=== PATIENT | female | born 2000 | race Caucasian/White ===

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

== ENCOUNTER 2020-06-17 11:23 | Emergency (ER) | payer BC ==
--- NOTE | 2020-06-17 12:36 | EDM.PDOC ---
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 She reports some blood clots and maybe some tissue with vaginal bleeding. She states she had some cramping but it was off and on. She reports ongoing vaginal bleeding. LMP 04/19/2020. Positive test in past. First OB appointment scheduled for 06/23/2020. She denies fever, chills, nausea, vomiting, change in bowel/bladder or other concerns. 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: Musculoskeletal History: Reports: None Neurological History: Reports: None Psychiatric History: Reports: Depression Endocrine/Metabolic History: Reports: None Dermatologic History: Reports: None - Infectious Disease History Infectious Disease History: Reports: None - Past Surgical History HEENT Surgical History: Reports: Tonsillectomy Social & Family History - Tobacco Use Tobacco Use Status *Q: Never Tobacco User - Caffeine Use Caffeine Use: Reports: None - Recreational Drug Use Recreational Drug Use: No ED ROS GENERAL - Review of Systems Review Of Systems: See Below Constitutional: Reports: No Symptoms HEENT: Reports: No Symptoms Respiratory: Reports: No Symptoms Cardiovascular: Reports: No Symptoms Endocrine: Reports: No Symptoms GI/Abdominal: Reports: Other (pelvic cramping off and on) : Reports: Other (irregular vaginal bleeding, confirmed , 8 weeks . LMP 04/19/2020) Musculoskeletal: Reports: No Symptoms Skin: Reports: No Symptoms Neurological: Reports: No Symptoms Psychiatric: Reports: No Symptoms ED EXAM - Physical Exam Exam: See Below Exam Limited By: No Limitations General Appearance: Alert, WD/WN, No Apparent Distress Throat/Mouth: Normal Inspection, Normal Lips, Normal Teeth, Normal Gums, Normal Oropharynx, Normal Voice, No Airway Compromise Head: Atraumatic, Normocephalic Neck: Normal Inspection, Supple, Non-Tender, Full Range of Motion. No: Lymphadenopathy (R), Lymphadenopathy (L) Respiratory/Chest: No Respiratory Distress, Lungs Clear, Normal Breath Sounds, No Accessory Muscle Use, Chest Non-Tender. No: Crackles, Rales, Rhonchi, Wheezing Cardiovascular: Normal Peripheral Pulses, Regular Rate, Rhythm, No Edema, No Murmur, No Rub GI/Abdominal Exam: Normal Bowel Sounds, Soft, No Mass, Other (tender to supra pubic with palpation) (Female) Exam: Normal External Exam, Adnexal Tenderness, Uterine Tenderness, Vaginal Bleeding (small clots noted). No: Products of Conception, Tissue Present in Cervix/Vagina, Vaginal Lesions, Vaginal Tears Back Exam: Normal Inspection, Full Range of Motion. No: CVA Tenderness (R), CVA Tenderness (L) Extremities: Normal Inspection, Normal Range of Motion, Non-Tender, No Pedal Edema, Normal Capillary Refill Neurological: Alert, Oriented, Normal Cognition, Normal Gait, No Motor/Sensory Deficits Psychiatric: Normal Affect, Tearful Skin Exam: Warm, Dry, Intact, Normal Color, No Rash Lymphatic: No Adenopathy Course - Vital Signs Last Recorded V/S: Last Vital Signs Temp 37.2 C 06/17/20 11:57 Pulse 74 06/17/20 11:57 Resp 16 06/17/20 11:57 BP 127/75 06/17/20 11:57 Pulse Ox 100 06/17/20 11:57 - Orders/Labs/Meds Orders: Active Orders 24 hr Category Date Time Status RH IMMUNE GLOBULIN [BBK] Routine Lab 06/17/20 13:18 Results URINALYSIS W/MICROSCOPIC [UA W/MICROSCOPIC] [URIN] Stat Lab 06/17/20 12:28 Ordered Labs: Laboratory Tests 06/17/20 06/17/20 06/17/20 Range/Units 12:32 12:40 12:40 WBC 9.5 (4.5-11.0) K/uL RBC 4.42 (3.30-5.50) M/uL Hgb 13.3 (12.0-15.0) g/dL Hct 39.9 (36.0-48.0) % MCV 90 (80-98) fL MCH 30 (27-31) pg MCHC 33 (32-36) % Plt Count 198 (150-400) K/uL Neut % (Auto) 66 (36-66) % Lymph % (Auto) 21 L (24-44) % [place] % (Auto) 11 H (2-6) % Eos % (Auto) 2 (2-4) % Baso % (Auto) 0 (0-1) % HCG, Quant [id number] H (0-6) mIU/mL Blood Type (Referred) O neg Rhogam Indicated Yes Blood Bank Comment [facility] - Radiology Interpretation Free Text/Narrative:: US completed, noted with good attachment, noted cardiac activity. Patient and significant other informed, all their questions were answered. Gt will be discharged to home with pelvic rest. Departure - Departure Time of Disposition: 13:45 Disposition: Home, Self-Care 01 Clinical Impression: Intrauterine , Vaginal bleeding - Discharge Information *PRESCRIPTION DRUG MONITORING PROGRAM REVIEWED*: Not Applicable *COPY OF PRESCRIPTION DRUG MONITORING REPORT IN PATIENT [place]ACO: Not Applicable Instructions: Vaginal Bleeding During , First Trimester Referrals: Jenna Durand PA [Primary Care Provider] - Forms: ED Department Discharge Additional Instructions: You have been evaluated for vaginal bleeding while . US shows development and cardiac activity. Quant HCG [id number] Pelvic rest Push fluids to stay hydrated Tylenol as needed for pain Follow up with scheduled appointment on June 23 as scheduled with OB Sepsis Event Note (ED) - Evaluation Sepsis Screening Result: No Definite Risk - Focused Exam Vital Signs: Vital Signs Temp Pulse Resp BP Pulse Ox 06/17/20 11:57 37.2 C 74 16 127/75 100 - My Orders Last 24 Hours: My Active Orders 06/17/20 12:28 URINALYSIS W/MICROSCOPIC [UA W/MICROSCOPIC] [URIN] Stat 06/17/20 13:18 RH IMMUNE GLOBULIN [BBK] Routine - Assessment/Plan Last 24 Hours: My Active Orders 06/17/20 12:28 URINALYSIS W/MICROSCOPIC [UA W/MICROSCOPIC] [URIN] Stat 06/17/20 13:18 RH IMMUNE GLOBULIN [BBK] Routine Assessment:: Vaginal Bleeding During , First Trimester Intrauterine , cardiac activity Plan: Patient evaluated for vaginal bleeding while . US shows development and cardiac activity. Quant HCG [id number] Pelvic rest Push fluids to stay hydrated Tylenol as needed for pain Follow up with scheduled appointment on June 23 as scheduled with OB
--- NOTE | 2020-06-17 14:16 | CRLUS ---
INDICATION: Vaginal bleeding TECHNIQUE: Ultrasound OB pelvis transvaginal. Real-time santos-scale imaging of the pelvis was performed. COMPARISON: None FINDINGS: Sonographic imaging demonstrates a single living intrauterine gestation. The embryo demonstrates a regular cardiac rate measuring 172 beats per minute. The embryo`s crown rump length measurement of 1.7 cm corresponds to a gestational age of 8 weeks 2 days with a sonographic due date of January 25, 2021. There is a normal appearing yolk sac. There are no gross abnormalities noted within the embryo at this early state of development. The placenta has not yet developed. There is no sign of perigestational hemorrhage. The ovaries are of normal size. There are no suspicious fluid collections noted in the cul-de-sac. IMPRESSION: Single viable intrauterine with an estimated ultrasound age of 8 weeks 2 days. No abnormalities seen. No sign of hemorrhage. Dictated by Masood Koenig MD @ Jun 17 2020 2:12PM Signed by Dr. Masood Koenig @ Jun 17 2020 2:14PM
== END 2020-06-17 14:02 | disposition home or self-care (01) ==
LOC: JP.ED 11:23
DX: O20.9 Hemorrhage in early pregnancy, unspecified (principal); Z88.2 Allergy status to sulfonamides; Z88.1 Allergy status to other antibiotic agents; Z3A.08 8 weeks gestation of pregnancy
CPT/HCPCS: 36415; 76817; 84702; 85025; 96372; 99284; J2790

== ENCOUNTER 2023-03-04 07:58 | Emergency (ER) | payer BC, MEDICAID | END 2023-03-04 09:10 | disposition home or self-care (01) | LOC: JP.ED 07:58 | DX: O9A.213 Injury, poisoning and certain other consequences of external causes complicating pregnancy, third trimester (principal); S30.1XXA Contusion of abdominal wall, initial encounter; Z3A.38 38 weeks gestation of pregnancy; Z88.1 Allergy status to other antibiotic agents; Z88.2 Allergy status to sulfonamides; W01.0XXA Fall on same level from slipping, tripping and stumbling without subsequent striking against object, initial encounter | CPT/HCPCS: 99284 ==